=== PATIENT | male | born 1975 | race Caucasian/White ===

== ENCOUNTER 2025-05-16 04:26 | Emergency (ER) | payer OTHER, SELFPAY ==
[2025-05-16 04:34] VITALS: BP 125/75; PULSE 97; RESP 18; TEMP 36.4; O2SAT 95; BMI 31.1
--- OUTSIDE RECORDS SUMMARY | 2025-05-16 05:11 | XMS_ITS | Clinical Summary ---
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 Name Role Phone Kenji Sun DC Primary Care Provider [phone] Social History Tobacco Use Types Packs/Day Years Used Date Smoking Tobacco: Never Assessed Sex and Gender Information Value Date Recorded Sex Assigned at Not on file Gender Identity Not on file Sexual Orientation Not on file Plan of Treatment Health Maintenance Due Date Last Done Comments Hepatitis B Vaccines (1 of 3 - 3-dose series) 1973 Hepatitis C Screening 1973 COVID-19 Vaccine (#1) 01/01/1974 Depression Screening 1985 Preventative Health Evaluation 1991 DTap / Tdap / Td (1 - Tdap) 1992 Colon Cancer Screening (Colonoscopy) 2018 Shingrix-Zoster Vaccine (1 of 2) 2023 Influenza Vaccine (#1) 2025 Pneumococcal Vaccine Aged Out No long er eligible based on patient's age to complete this topic RSV Ped < 20 months Aged Out No longe r eligible based on patient's age to complete this topic Care Teams Grain Elevator Superintendent Relationship Specialty Start Date End Date Kenji Sun DC [address] [place], [place] [id number] PCP - General Production Consultant 05/05/18
[2025-05-16 06:37] VITALS: BP 125/85; PULSE 59; RESP 16; TEMP 36.8; O2SAT 100
[2025-05-16 06:38] VITALS: BP 125/85; PULSE 59; RESP 16; TEMP 36.8; O2SAT 100
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
[2025-05-16] MEDS: Diphth,Pertus(ACell),Tet Adult 0.5 ML SYRINGE IM (08:10)
[2025-05-16] MEDS: Lidocaine HCl 1 % MPF 5 ML VIAL INFILTRATI ×2 (08:12)
--- NOTE | 2025-05-16 08:14 | PC.NURSE ---
Dr. Jordan at bedside for lac repair. Lidocaine administered by Dr. Renteria. Pt given Tdap per DEC.
[2025-05-16 08:45] VITALS: BP 127/86; PULSE 71; RESP 18; TEMP 36.7; O2SAT 95
[2025-05-16 08:49] VITALS: BP 127/86; PULSE 71; RESP 18; TEMP 36.7; O2SAT 95
== END 2025-05-16 08:50 | disposition home or self-care (01) ==
PROVIDERS: Emergency Provider Emergency Medicine Emergency Medical Services; PCP Family Medicine
DX: S01.01XA Laceration without foreign body of scalp, initial encounter (principal); Y04.0XXA Assault by unarmed brawl or fight, initial encounter; Y93.9 Activity, unspecified; Y92.9 Unspecified place or not applicable; Y99.9 Unspecified external cause status
CPT/HCPCS: 12002; 90471; 90715; 99284; J2003